=== PATIENT | female | born 1955 | race Caucasian/White ===

== ENCOUNTER 2017-04-18 00:06 | Emergency (ER) | payer BC ==
--- NOTE | 2017-04-18 01:05 | ERNOTE ---
Time Seen by Provider: 04/18/17 00:26 Stated Complaint: COUGH BELLY PAIN Presenting Symptoms:: cough, sore throat Source: patient, family Exam Limitations: no limitations Immunizations: IMMUNIZATION HX Immunizations Up to Date Yes History of Influenza Vaccine No Hx Pneumococcal Vaccination No Allergies/Adverse Reactions: Allergies No Known Allergies Allergy (Verified 04/18/17 00:16) - History of Present Ilness Narrative: Pt states she was sick with upper respiratory symptoms about 2 weeks ago then was asymptomatic for about 6 days. She then began coughing and feeling poorly in general yesterday morning. Timing: getting worse Severity: moderate, severe Modifying Factors - Worsens: Reports: coughing, lying down Review of Systems - Review of Systems Constitutional: Present: chills, malaise. Absent: fever EYE: Present: no symptoms reported ENT: Present: nasal drainage, sore throat Respiratory: Present: See HPI Cardiology: Absent: chest pain Gastrointestinal/Abdominal: Present: diarrhea - Patient's Past Medical History Patient History - Medical: UTI'S Patient History - Cardiac/Respiratory: No pertinent hx Patient History - Cancer: No Hx of Cancer Patient History - Surgical Procedures: Appendectomy, Hysterectomy Patient History - Other: None - Social History Living Situations: spouse Abuse History: No History of abuse Psych History: No pertinent hx Smoking Status: Never smoker Alcohol Use: none Drug Use: none - Immunizations Immunizations Up to Date: Yes Hx Pneumococcal Vaccination: No History of Influenza Vaccine: No Physical Exam - Physical Exam General Appearance: Present: wd/wn, alert, mild distress Head Exam: Present: normal inspection, no evidence of injury Eye Exam: Normal inspection: bilateral Ears, Nose, Throat: Present: pharyngeal erythema - with PND Neck: Present: normal inspection, nontender, supple Respiratory: Present: no respiratory distress, normal breath sounds, no accessory muscle use Cardiovascular/Chest: Present: regular rate, rhythm, no murmur, normal peripheral pulses Back Exam: Present: normal inspection, normal range of motion Extremity Exam: Present: normal inspection, normal range of motion Neurological Exam: Present: alert, oriented, normal mood/affect, no motor/ sensory deficits Skin Exam: Present: normal color, warm/dry Lymphatic Exam: Present: no adenopathy ED Progress - Results and Orders Patient's Lab Results:: I have reviewed the patient's lab results. Results and Orders: Laboratory Tests 04/18/17 00:38 Influenza Type A Ag Negative Influenza Type B Ag Negative - Vital Signs Patient's Vital Signs:: I have reviewed the patient's vital signs. Vital Signs: Vital Signs 04/18/17 00:09 Temperature 36.9 C Pulse Rate 104 H Respiratory 18 Rate Blood Pressure 126/77 O2 Sat by Pulse 94 Oximetry - X-Ray X-Ray #1 X-Ray: chest Interpretation: Interp. by me X-ray Comments: no infiltrate or effusion. - Progress/Reassessment Chief Complaint: Upper Respiratory Symptoms Progress:: Improved Departure Clinical Impression: Bronchitis - Departure Disposition: Home self-care Condition: Good Instructions: Acute Bronchitis, [id number] Additional Instructions: Use mucinex to keep mucous loose. Get plenty of rest. Referrals: Yanci Beltran, ENGINEER ASSISTANT [Primary Care Provider] -
[2017-04-18 01:51] LABS: Hematocrit 39.9 % (37.0-47.0); Hemoglobin 13.6 gm/dL (12.5-16.0); Mean Cell Volume 85.8 fl (78-100); Mean Corpuscular Hemoglobin 29.2 pg (27-31); Mean Corpuscular Hgb Conc 34.1 g/dl (32-36); Mean Platelet Volume 8.5 fl (6.0-9.5); Neutrophil # 2.9 K/mm3 (1.3-6.0); Neutrophil % 75.2 % (42-75.0); Platelet Count 209 K/mm3 (150-450); Red Blood Count 4.65 M/mm3 (4.2-5.4); Red Cell Distribution Width 12.4 % (11.5-14.0); White Blood Count 3.8 K/mm3 (4.0-10.5)
[2017-04-18 03:22] VITALS: BP 128/63
== END 2017-04-18 03:21 | disposition home or self-care (01) ==
LOC: ER 00:06
DX: J40 Bronchitis, not specified as acute or chronic (principal); Z87.440 Personal history of urinary (tract) infections